=== PATIENT | male | born 1935 ===

== ENCOUNTER 2020-12-13 10:54 | Day surgery (SDC) | payer OTHER ==
[2020-12-11 10:01] LABS: Absolute Lymphocytes (CBC) 2.3 K/uL (0.7-4.9); Basophils % 1.2 % (0-1.3); Hematocrit 40.5 % (39.6-49.0); Lymphocytes % 24.6 % (15.3-44.8); MPV 8.9 fL (7.6-11.3); RBC Red Blood Cell Count 4.11 M/uL (4.33-5.43)
[2020-12-11 10:13] LABS: Protime INR 0.99
[2020-12-11 10:14] LABS: Potassium 4.4 mmol/L (3.5-5.1)
--- NOTE | 2020-12-11 10:19 | RAD REPORT ---
EXAM DESCRIPTION: RAD - Chest Pa And Lat (2 Views) - 12/11/2020 10:07 am CLINICAL HISTORY: preop Chest pain. COMPARISON: No comparisons FINDINGS: Advanced COPD is present. Opacities present on the lateral view projecting posteriorly lik jason left lower lobe infiltrate. The heart is normal in size. Aortic atherosclerosis. IMPRESSION: Advanced COPD is present. Opacity in the left lower lobe projecting posteriorly probably represents infiltrate or area of aspir ation.
[2020-12-13] MEDS ORDERED: AMPICILLIN SODIUM 2 GM in NA CHLORIDE 0.9% 100 ML IVPB ONE (11:15)
[2020-12-13] MEDS ORDERED: ALBUTEROL 2.5 MG/3 ML NEB SOL NEB ONE (11:15)
[2020-12-13] MEDS ORDERED: Gentamicin Inj 160 MG in NA CHLORIDE 0.9% 100 ML IV ONE (11:15)
[2020-12-13] MEDS ORDERED: Ringers Lactate 1,000 ML IV ONE (11:29)
[2020-12-13] MEDS ORDERED: ALBUTEROL 2.5 MG/3 ML NEB SOL ONE (11:37)
[2020-12-13] MEDS ORDERED: MIDAZOLAM HCL 2 MG/2 ML INJ ONE (12:13)
[2020-12-13] MEDS ORDERED: FENTANYL CITR 100 MCG/2 ML ONE (12:13)
[2020-12-13] MEDS ORDERED: propofoL 200 MG/20 ML VIAL IV ONE (12:13)
[2020-12-13] MEDS ORDERED: ONDANSETRON 4 MG/2 ML VIAL ONE (12:14)
[2020-12-13] MEDS ORDERED: LIDOCAINE 2% MPF 5 ML VIAL ONE (12:16)
[2020-12-13] MEDS ORDERED: BUPIVACAINE 0.75% (PF) 2 ML SP ONE (12:33)
[2020-12-13] MEDS ORDERED: LIDOCAINE 1% MPF 5 ML VIAL ONE (12:33)
[2020-12-13] MEDS ORDERED: EPHEDRINE SULF 50 MG/ML VIAL ONE (13:08)
--- NOTE | 2020-12-13 13:24 | RAD REPORT ---
EXAM DESCRIPTION: RAD - Urethrocystogrphy Retrograde - 12/13/2020 1:18 pm CLINICAL HISTORY: TERP COMPARISON: No comparisons FINDINGS: Total fluoro time: 0.19 minutes
[2020-12-13] MEDS ORDERED: CODEINE 30MG/APAP 300MG TAB PO PRN (13:28)
[2020-12-13 14:10] VITALS: TEMP 97
[2020-12-13 15:43] VITALS: BP 130/71; O2SAT 96
--- NOTE | 2020-12-13 23:32 | OP ---
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 2.Urinary retention, potentially secondary to benign prostatic hypertrophy. 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 2.Urinary retention, potentially secondary to benign prostatic hypertrophy. Principal Procedures: 1.Cystoscopy. 2.Transurethral resection of a bladder tumor using cold cup biopsy forceps. 3.Fulguration of base of lesion. 4.Bilateral retrograde pyelography. 5.Urethral Escobar catheter exchange. Indication For Procedure: Mr. Vela presented to the Urology Clinic in followup of an episode of uri nary retention associated with a hospitalization where a catheter was placed. 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 As a result, he was cou nseled on the recommendation of urodynamic evaluation prior to consideration of management of his out let obstruction. Meanwhile, within the dome of the bladder, an approximately 1 cm bladder tumor antwan rebollar was identified. As a result, he was recommended for resection of this tumor. 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 Prior to initiating any anticoagulant medication, his c ardiologist recommended he have this procedure done. As a result, he presents today for management o f the bladder tumor. He inquired about when the Escobar catheter would be removed, and I reminded him that given his prior failed voiding trial, we would not likely attempt that today in the setting of w eakening the wall of his bladder with removal of the bladder tumor. We would plan that to be interva lly done on followup. Procedure In Detail: The patient was consented in the preoperative holding area before being transfe rred to the operative suite where general anesthesia using an LMA was induced. He was given ampicill in plus gentamicin IV, antimicrobial prophylaxis, and pneumo boots were provided for DVT prophylaxis. He was placed in the lithotomy position, padded and secured to the table. The case was begun by pr epping his genitalia with Hibiclens and draping him in standard fashion. Using a 22-Scottish rigid cys toscope, the urethra was traversed and the bladder entered. The bladder was again surveyed and noted to be markedly trabeculated, and while there was evidence of Escobar catheter related mucosal edema in the posterior region of the bladder, within the dome, there was this erythematous appearing papillar y bladder tumor that for the most part was on a stalk. The tumor was about 1-1.[address] maximal [address]. Thus, using cold cup biopsy forceps and switching to sterile water for irrigation, I grasped th e bladder tumor near its base and multiple biopsies, I was able to completely remove the entirety of the tumor, sending it for pathologic analysis. I then surveyed the base of the tumor and fulgurated it in its entirety to stop any and all bleeding. The remainder of the bladder was completely surveye d and was free of any mucosal lesion, foreign body, or stone. I then turned my attention to the uret eral orifices, which were orthotopic in location and cannulated the left ureteral orifice first using the tip of a 5-Scottish ureteral access catheter. Left retrograde pyelography: Using a 70:30 mixture of Omnipaque and saline, contrast was injected via the 5-Scottish ureteral access catheter and did propagate up the nondilated distal into the mid and proximal ureter before entering a very normal appearing renal pelvis with narrow infundibulum and sharp calices without any evidence of filling defect. There were no filling defects within the renal pelvis or along the course of the ureter. As such, the 5-Scottish ureteral access catheter was removed, and I turned my attention to th e right ureteral orifice. I then cannulated the right ureteral orifice with a 5-Scottish ureteral acce ss catheter. Right retrograde pyelography: Again, using the 70:30 mixture of Omnipaque and saline, contrast was injected via the 5-Scottish ureter al access catheter and again did propagate up a nondilated distal into the mid and proximal ureter. No filling defects were noted along the course of the ureter as observed fluoroscopically. The contr ast entered a nondilated renal pelvis, which again had sharp calices and narrow infundibulum. No sumanth ling defects within the upper tracts were noted as well. As a result, the 5-Scottish ureteral access c atheter was removed, and his bladder was then decompressed and irrigated free of any floating tumor d ebris. I then left his bladder partially full with sterile water and placed a 16-Scottish urethral Fol ey catheter with ease into his bladder and with 10 cc of sterile water in the balloon. The catheter was then decompressed in place to a floor bag, and the patient was taken out of the lithotomy positio n. He was then awakened from general anesthesia, transferred to a stretcher, and then transferred to the recovery room in good condition. Complications: None. Discharge Disposition: He should follow up in the Urology Clinic in approximately 2 weeks' time, nella moralez may be with nurse practitioner, Hayden on a day when I am present within the clinic or on my amish edule, for a voiding trial, but also to discuss the results of the pathology. Any potential future b enefit of adjuvant therapy with intravesical gemcitabine or other would be determined by the patholog y of the tumor. Should the patient again fail his voiding trial at that point, we would again reinfo rce the need for urodynamic evaluation prior to further consideration of surgical therapy for any pot ential obstruction due to BPH. Otherwise, the patient should resume his Plavix on Friday assuming hi s urine remains clear or minimally pink. He never stopped his aspirin as he was instructed, and he s hould continue it at this time. SUZANNE/JINNY Voice ID: [id number] Report ID: [id number]
--- NOTE | 2020-12-18 09:24 | EKG ---
Test Date: 2020-12-13 Test Time: 10:37:14 Tugboat Captain: REBA MEASUREMENT RESULTS: Intervals: Rate: 64 IL: 250 QRSD: 72 QT: 434 QTc: 447 [place]: P: 69 IL: 250 QRS: -46 T: 58 INTERPRETIVE STATEMENTS: Sinus rhythm with 1st degree AV block with occasional premature ventricular complexes and premature atrial complexes Left anterior fascicular block Abnormal ECG No previous ECG available for comparison Electronically Signed On 12-18-20 09:17:54 CDT by Samuel Cummings
== END 2020-12-13 15:25 | disposition home or self-care (01) ==
LOC: PRE 10:54 → OR 15:25
PROVIDERS: ATTEND Urology
PROC: 0T2BX0Z Change Drainage Device in Bladder, External Approach (ICD-10-PCS; 2020-12-13)
PROC: 0TBB8ZX Excision of Bladder, Via Natural or Artificial Opening Endoscopic, Diagnostic (ICD-10-PCS; principal; 2020-12-13 12:00)
DX: C67.1 Malignant neoplasm of dome of bladder (principal); N40.1 Benign prostatic hyperplasia with lower urinary tract symptoms; R33.8 Other retention of urine; Z20.822 Contact with and (suspected) exposure to COVID-19
CPT/HCPCS: 93005; 87088; 85025; 87086; 80048; 36415; 85610; 88307; 85730; 71046; 74450; 51610; 52204; 51702; U0003; J2704; J1580; J2250; J3010; J7120; J2405; J0290; 88305